=== PATIENT | female | born 2000 | race African-American/Black ===

== ENCOUNTER → 2022-11-03 | Day surgery (SDC) | payer OTHER ==
[~2022-11-03] MED LIST: Acetaminophen 500 MG TAB ONE; Acetaminophen 500 MG TAB PO SCH; Iron Sucrose Complex 500 MG in Sodium Chloride 0.9% 250 ML 250 ML IVPB SCH
== END ==
LOC: CSHSDC/OP 08:38
PROVIDERS: ATTEND Obstetrics & Gynecology
DX: O99.019 Anemia complicating pregnancy, unspecified trimester (principal); D64.9 Anemia, unspecified
CPT/HCPCS: J1756; J7050

== ENCOUNTER 2022-11-07 10:40 | Inpatient (IN) | payer OTHER ==
[2022-11-07] MEDS ORDERED: Misoprostol 100 MCG TAB ONE (12:08)
[2022-11-07] MEDS ORDERED: Acetaminophen 500 MG TAB PO PRN (12:23)
[2022-11-07] MEDS ORDERED: Tranexamic Acid 1,000 MG in Sodium Chloride 0.9% 250 ML 250 ML IVPB PRN (12:23)
[2022-11-07] MEDS ORDERED: Promethazine HCl 25 MG/ML VIAL IM PRN (12:23)
[2022-11-07] MEDS ORDERED: Misoprostol 200 MCG TAB PR PRN (12:23)
[2022-11-07] MEDS ORDERED: Butorphanol Tartrate 1 MG/ML VIAL SLOW IVP PRN (12:23)
[2022-11-07] MEDS ORDERED: Carboprost 250 MCG/ML AMP IM PRN (12:23)
[2022-11-07] MEDS ORDERED: Ondansetron PF 4 MG/2 ML Vial IVP PRN (12:23)
[2022-11-07] MEDS ORDERED: Ibuprofen 800 MG TAB PO PRN (12:23)
[2022-11-07] MEDS ORDERED: Methylergonovine 0.2 MG/ML VIAL IM PRN (12:23)
[2022-11-07] MEDS ORDERED: Diphenoxylate HCl/Atropine Tablet PO PRN (12:23)
[2022-11-07] MEDS ORDERED: hydrALAZINE 20 MG/ML VIAL SLOW IVP PRN (12:23)
[2022-11-07] MEDS ORDERED: Lidocaine 1% (PF) 30 ML VIAL SC PRN (12:23)
[2022-11-07 12:27] VITALS: BMI 28.4
[2022-11-07] MEDS ORDERED: NS w/ Oxytocin 30 units 500 ML IV SCH ×2 (12:30)
[2022-11-07] MEDS ORDERED: Lactated Ringer's 1,000 ML IV SCH (12:30)
[2022-11-07 12:39] LABS: Hemoglobin 10.3 g/dL (12.0-15.5); Mean Corpuscular HGB CONC 30.7 g/dL (32.0-36.0); Mean Corpuscular Hemoglobin 24.6 pg (27.0-33.0); Mean Platelet Volume 9.8 fl (7.4-10.4); Platelet Count 289 10x3/uL (150-450); RBC Distribution Width 20.3 % (11.5-14.5); Red Blood Cell (RBC) Count 4.19 10x6/uL (3.90-5.03); White Blood Cell (WBC) Count 15.9 10x3/uL (3.5-10.5)
[2022-11-07 13:05] LABS: Syphilis Antibody Nonreactive (Nonreactive); Syphilis Antibody Index 0.07 S/CO (<1.00 Non-Reactive)
[2022-11-07 13:06] LABS: HBSAg Index 0.15 S/CO (0-0.99); Hep B Surf Ag Non-Reactive S/CO (NonReactive)
[2022-11-07 13:24] LABS: SARS-CoV-2 NAA Rapid Test Not Detected (NotDetected)
[2022-11-07 16:03] LABS: ALT (SGPT) 9 U/L (8-55); AST (SGOT) 16 U/L (5-34); Albumin 3.6 g/dL (3.5-5.0); Alkaline Phosphatase 154 U/L (40-110); Anion Gap 13 mmol/L (10-20); BUN (Urea Nitrogen) 6 mg/dL (7.0-18.7); Bilirubin, Total 0.6 mg/dL (0.2-1.2); Calc. Creatinine Clearance 150 mL/min (70-130); Calcium 9.2 mg/dL (7.8-10.44); Carbon Dioxide 22 mmol/L (22-29); Chloride 105 mmol/L (98-107); Estimated GFR 122; Globulin 3.9 g/dL (2.4-3.5); Glucose 149 mg/dL (70-105); Potassium 3.2 mmol/L (3.5-5.1); Protein, Total 7.5 g/dL (6.0-8.3); Sodium 137 mmol/L (136-145)
[2022-11-07] MEDS: Misoprostol 100 MCG TAB VAG SCH (16:22)
[2022-11-07 17:38] LABS: Creatinine, Urine 92.36 mg/dL (47-110)
[2022-11-07] MEDS ORDERED: diphenhydrAMINE 50 MG/ML VIAL IVP PRN (20:16)
[2022-11-07] MEDS ORDERED: Acetaminophen 500 MG TAB PO SCH (23:15)
[2022-11-07] MEDS: Penicillin V Potassium 250 MG TAB PO SCH (23:56)
[2022-11-08] MEDS ORDERED: CEFAZOLIN 2 GM VIAL ONE (01:16)
[2022-11-08] MEDS ORDERED: Famotidine/PF 20 mg/2ml Vial ONE (01:16)
[2022-11-08] MEDS ORDERED: Midazolam HCl 2 mg/2 ml Vial ONE (01:20)
[2022-11-08] MEDS ORDERED: PROPOFOL 20 ML ONE (01:20)
[2022-11-08] MEDS ORDERED: Fentanyl 100 MCG/2 ML VIAL ONE (01:20)
[2022-11-08] MEDS ORDERED: Succinylcholine 200 MG/10 ml SYRINGE FS ONE (01:20)
[2022-11-08] MEDS ORDERED: Rocuronium Bromide 10 MG/ML (10ML VIAL) ONE (01:21)
[2022-11-08] MEDS ORDERED: Morphine PF 10 MG/10 ML VIAL ONE (01:36)
[2022-11-08] MEDS ORDERED: Oxytocin 10 UNITS/ML VIAL ONE (01:38)
[2022-11-08] MEDS ORDERED: Ondansetron PF 4 MG/2 ML Vial ONE (01:46)
[2022-11-08] MEDS ORDERED: Methylergonovine 0.2 MG/ML VIAL ONE (02:24)
[2022-11-08] MEDS ORDERED: Ondansetron PF 4 MG/2 ML Vial IVP PRN ×3 (05:11→07:03)
[2022-11-08] MEDS ORDERED: Ketorolac Tromethamine 30 MG/ML VIAL IVP PRN ×2 (05:12→05:21)
[2022-11-08] MEDS ORDERED: Ketorolac Tromethamine 30 MG/ML VIAL IVP SCH (05:15)
[2022-11-08] MEDS ORDERED: Meperidine HCl/PF 25 MG/ML VIAL IV PRN (05:15)
[2022-11-08] MEDS ORDERED: Moisturizing Cream (Eucerin) 113 GM JAR TOP PRN (05:15)
[2022-11-08] MEDS ORDERED: HYDROmorphone 2 MG/ML VIAL SLOW IVP PRN (05:15)
[2022-11-08] MEDS ORDERED: Promethazine HCl 25 MG SUPP PR PRN (05:15)
[2022-11-08] MEDS ORDERED: NO PO,IM,IV OR SC NARCOTICS FOR 12HR EXCEPT BY ANESTHESIA PO SCH (05:15)
[2022-11-08] MEDS ORDERED: diphenhydrAMINE 50 MG/ML VIAL IVP PRN (05:15)
[2022-11-08] MEDS ORDERED: Morphine 4 MG/ML VIAL SLOW IVP PRN (05:15)
[2022-11-08] MEDS ORDERED: Naloxone HCl 0.4 mg/ml Vial IV PRN ×3 (05:15)
[2022-11-08] MEDS ORDERED: Promethazine HCl 25 MG/ML VIAL IM PRN ×2 (05:15→07:03)
[2022-11-08] MEDS ORDERED: Simethicone Chewable 80 MG TAB PO PRN ×3 (05:17→07:03)
[2022-11-08] MEDS ORDERED: Ketorolac Tromethamine 30 MG/ML VIAL ONE (05:17)
[2022-11-08] MEDS ORDERED: Boostrix 0.5 ML (Tdap) VIAL (>/=7 yrs of age) IM ONE ×2 (05:17→05:30)
[2022-11-08] MEDS ORDERED: hydrALAZINE 20 MG/ML VIAL SLOW IVP PRN ×3 (05:17→07:03)
[2022-11-08] MEDS ORDERED: Ibuprofen 800 MG TAB PO SCH (06:00)
[2022-11-08] MEDS ORDERED: Misoprostol 200 MCG TAB PR PRN (07:03)
[2022-11-08] MEDS ORDERED: NS w/ Oxytocin 30 units 500 ML IV SCH (07:03)
[2022-11-08] MEDS ORDERED: diphenhydrAMINE 25 MG CAP PO PRN (07:03)
[2022-11-08] MEDS ORDERED: Acetaminophen 325 MG TAB PO PRN (07:03)
[2022-11-08] MEDS ORDERED: Bisacodyl 10 MG SUPP PR PRN (07:03)
[2022-11-08 07:35] LABS: Critical Notified By: CP.PH; pH (Cord, venous) 7.277 (7.250-7.350)
[2022-11-08] MEDS ORDERED: Ferrous Sulfate 325 MG TAB PO SCH (08:00)
[2022-11-08] MEDS: Misoprostol 100 MCG TAB VAG SCH (08:14)
[2022-11-08] MEDS: Lactated Ringer's 1,000 ML IV SCH ×2 (08:14→15:29)
[2022-11-08 08:56] LABS: Amphetamine Not Detected (NotDetected); Barbiturates Screen Not Detected (NotDetected); Benzodiazepine Screen Not Detected (NotDetected); Cocaine Metabolite Screen Not Detected (NotDetected); Methadone Not Detected (NotDetected); Methamphetamine Not Detected (NotDetected); Opiate Screen Detected (NotDetected); Oxycodone Screen Not Detected (NotDetected); Phencyclidine (PCP) Not Detected (NotDetected); THC/Cannabinoid Screen Not Detected (NotDetected); Tricyclic Screen Not Detected (NotDetected)
[2022-11-08] MEDS ORDERED: Prenatal Vitamin 1 TAB PO SCH ×2 (09:00)
[2022-11-08] MEDS ORDERED: Docusate 100 MG CAP PO SCH ×2 (09:00)
[2022-11-08] MEDS: Prenatal Vitamin 1 TAB PO SCH (09:16)
[2022-11-08] MEDS: Docusate 100 MG CAP PO SCH ×2 (09:16→21:12)
[2022-11-08] MEDS: Ferrous Sulfate 325 MG TAB PO SCH ×2 (09:16→21:13)
[2022-11-08] MEDS: Penicillin V Potassium 250 MG TAB PO SCH ×3 (11:34→21:13)
[2022-11-08] MEDS: Ibuprofen 800 MG TAB PO SCH ×2 (13:48→21:13)
[2022-11-08] MEDS ORDERED: HYDROcodone/Acetaminophen 5/325 mg Tablet PO PRN ×3 (15:20)
[2022-11-08] MEDS ORDERED: Butorphanol Tartrate 1 MG/ML VIAL SLOW IVP PRN (15:20)
[2022-11-08] MEDS ORDERED: Diphenoxylate HCl/Atropine Tablet PO PRN (15:20)
[2022-11-08] MEDS: HYDROcodone/Acetaminophen 5/325 mg Tablet PO PRN (18:17)
[2022-11-09] MEDS: HYDROcodone/Acetaminophen 5/325 mg Tablet PO PRN ×4 (03:03→17:55)
[2022-11-09 04:54] LABS: Hemoglobin 8.7 g/dL (12.0-15.5); Mean Corpuscular HGB CONC 30.9 g/dL (32.0-36.0); Mean Corpuscular Hemoglobin 25.1 pg (27.0-33.0); Mean Corpuscular Volume 81.5 fl (81.6-98.3); Mean Platelet Volume 9.8 fl (7.4-10.4); Platelet Count 248 10x3/uL (150-450); RBC Distribution Width 20.9 % (11.5-14.5); Red Blood Cell (RBC) Count 3.46 10x6/uL (3.90-5.03); White Blood Cell (WBC) Count 13.6 10x3/uL (3.5-10.5)
[2022-11-09] MEDS ORDERED: Ibuprofen 800 MG TAB PO SCH (06:00)
[2022-11-09] MEDS: Ibuprofen 800 MG TAB PO SCH ×3 (06:01→22:13)
[2022-11-09] MEDS: Docusate 100 MG CAP PO SCH ×2 (09:01→22:12)
[2022-11-09] MEDS: Prenatal Vitamin 1 TAB PO SCH (09:02)
[2022-11-09] MEDS: Ferrous Sulfate 325 MG TAB PO SCH ×2 (09:02→22:13)
[2022-11-09] MEDS: Penicillin V Potassium 250 MG TAB PO SCH ×2 (17:36→19:09)
[2022-11-09] MEDS: Lactated Ringer's 1,000 ML IV SCH (17:37)
[2022-11-10] MEDS: Penicillin V Potassium 250 MG TAB PO SCH ×4 (00:01→21:39)
[2022-11-10] MEDS: Lactated Ringer's 1,000 ML IV SCH ×2 (00:01→06:24)
[2022-11-10] MEDS: HYDROcodone/Acetaminophen 5/325 mg Tablet PO PRN ×3 (00:09→13:35)
[2022-11-10] MEDS: Ibuprofen 800 MG TAB PO SCH ×3 (05:53→21:39)
[2022-11-10] MEDS: Ferrous Sulfate 325 MG TAB PO SCH ×2 (09:39→21:39)
[2022-11-10] MEDS: Docusate 100 MG CAP PO SCH ×2 (09:39→21:39)
[2022-11-10] MEDS: Prenatal Vitamin 1 TAB PO SCH (09:39)
[2022-11-11] MEDS: HYDROcodone/Acetaminophen 5/325 mg Tablet PO PRN ×2 (00:08→13:25)
[2022-11-11] MEDS: Ibuprofen 800 MG TAB PO SCH ×2 (05:47→13:27)
[2022-11-11] MEDS: Docusate 100 MG CAP PO SCH (08:35)
[2022-11-11] MEDS: Prenatal Vitamin 1 TAB PO SCH (08:35)
[2022-11-11] MEDS: Penicillin V Potassium 250 MG TAB PO SCH (08:35)
[2022-11-11] MEDS: Ferrous Sulfate 325 MG TAB PO SCH (08:35)
[2022-11-11 08:59] VITALS: BP 119/59; TEMP 98.5
[2022-11-13] MEDS ORDERED: Ibuprofen 800 MG TAB PO SCH (06:00)
== END 2022-11-11 14:45 | disposition home or self-care (01) | DRG 787 ==
LOC: CSHLD 10:40 → CSHANTE 11-08 06:25
PROVIDERS: ADMIT Family Medicine; ATTEND Family Medicine
PROC: 0U7C7ZZ Dilation of Cervix, Via Natural or Artificial Opening (ICD-10-PCS; principal; 2022-11-08)
PROC: 10D00Z1 Extraction of Products of Conception, Low, Open Approach (ICD-10-PCS; 2022-11-08)
DX: O36.5930 Maternal care for other known or suspected poor fetal growth, third trimester, not applicable or unspecified (principal); O41.03X0 Oligohydramnios, third trimester, not applicable or unspecified; O76 Abnormality in fetal heart rate and rhythm complicating labor and delivery; O99.02 Anemia complicating childbirth; D64.9 Anemia, unspecified; Z37.0 Single live birth; Z20.822 Contact with and (suspected) exposure to COVID-19; Z3A.38 38 weeks gestation of pregnancy; Z79.899 Other long term (current) drug therapy
CPT/HCPCS: 51702; 80053; 80306; 82570; 82805; 84156; 85027; 86780; 86850; 86900; 86901; 87340; 88307; J1885; J2210; J2250; J2274; J2310; J2405; J2590; J2704; J3010; U0002